=== PATIENT | male | born 1940 | race Caucasian/White ===

== ENCOUNTER 2019-07-07 16:03 | Emergency (ER) | payer OTHER ==
[~2019-07-07] VITALS: Ht 175.3 cm; Wt 79.4 kg
[~2019-07-07 16:03] MED LIST: ADULT LOW DOSE81 MG PO; AVELOX 400 MG400 MG PO; FISH OIL 500 M1 EAC1 PO; NIACIN 500 MG500 M1 PO; PRINIVIL10 MG PO; ZESTRIL5 MG PO; ZETIA10 MG PO; ZOCOR 20 MG TAB20 M1 PO; [UNRECOGNIZED DRUG - OTHER] PO
[2019-07-07 16:58] LABS: ABSOLUTE NEUTROPHILS 12.2 thou/uL (1.4-8.2); BASOPHILS 0.6 % (0.0-2.0); EOSINOPHILS 0.2 % (0.0-3.0); HEMATOCRIT 46.7 % (42.0-52.0); HEMOGLOBIN 15.4 gm/dL (14.0-18.0); LYMPHOCYTES 5.5 % (24.0-44.0); MCH 32.2 pg (26.0-34.0); MCV 97.8 fL (80.0-100.0); MONOCYTES 6.4 % (1.0-8.0); PLATELET COUNT 146 thou/uL (150-400); POLYS 87.3 % (36.0-66.0); RBC 4.78 mil/uL (4.50-6.00)
[2019-07-07 17:16] LABS: CALCIUM 9.3 mg/dL (8.5-10.1); CREATININE 1.2 mg/dL (0.7-1.3); POTASSIUM 3.7 mmol/L (3.5-5.1)
[2019-07-07 17:21] LABS: ALBUMIN 3.9 g/dL (3.4-5.0); TOTAL BILIRUBIN 0.7 mg/dL (<0.1-1.0); TOTAL PROTEIN 7.1 g/dL (6.4-8.2)
[2019-07-07] MEDS ORDERED: LIPITOR80 MG PO (17:22)
[2019-07-07] MEDS ORDERED: FLOMAX0.4 MG PO (17:22)
[2019-07-07] MEDS ORDERED: PROSCAR 5MG TABL5 M1 PO (17:24)
[2019-07-07 17:52] LABS: URINE BILIRUBIN NEGATIVE (Negative); URINE BLOOD NEGATIVE (Negative); URINE CLARITY CLEAR; URINE COLOR YELLOW; URINE GLUCOSE-RANDOM* NEGATIVE (Negative); URINE KETONES TRACE (Negative); URINE LEUKOCYTES-REFLEX NEGATIVE (Negative); URINE NITRITE-REFLEX NEGATIVE (Negative); URINE PROTEIN (DIPSTICK) NEGATIVE (Negative); URINE SPECIFIC GRAVITY >= 1.030 (1.005-1.035); URINE UROBILINOGEN 0.2 E.U./dl (0.2-1.0)
[2019-07-07] MEDS ORDERED: PROBIOTIC1 EAC7 PO (19:30)
[2019-07-07 20:20] VITALS: BP 131/87
--- NOTE | 2019-07-08 10:29 | EKG ---
[address] [place] [address] ELECTROCARDIOGRAM REPORT Name: PARMINDER BENITO [id number] Admission: 07/07/19 Attend Phys: Discharge: 07/07/19 Date of : 44 Report #: [id number] THIS REPORT FOR: //name// [facility] ED Test Date: 2019-07-07 Test Time: 16:55:16 Pat Name: PARMINDER BENITO Department: Room: Gender: M Outpatient Phlebotomist: : [id number] Requested By: Kayla Elmore Order Number: [id number] MD: Jerrod Gallardo Measurements Intervals [place] Rate: 82 P: 21 [place]: 41 QRS: -74 QRSD: 111 T: 86 QT: 388 QTc: 453 Interpretive Statements Sinus rhythm Short [place] interval Incomplete RBBB and LAFB Nonspecific ST segment abnormalities No previous ECG available for comparison Electronically Signed On 07-08-2019 10:29:25 [place] by Jerrod Gallardo [email or web address] <ELECTRONICALLY SIGNED> By: Jerrod Gallardo MD 07/08/19 1029 1655 1655 Jerrod Gallardo MD /EPI
== END 2019-07-07 20:20 | disposition home or self-care (01) ==
LOC: ER 16:03
PROVIDERS: Nurse Practitioner Family
DX: K52.9 Noninfective gastroenteritis and colitis, unspecified (principal); I95.1 Orthostatic hypotension; I71.4 Abdominal aortic aneurysm, without rupture